=== PATIENT | female | born 1945 | race Two or more races ===

== ENCOUNTER 2019-11-08 13:00 | Outpatient (CLI) | payer OTHER | END 2019-11-08 13:19 | disposition home or self-care (01) | LOC: NUCLEAR 13:00 | PROVIDERS: ATTEND Psychiatry & Neurology Neurology | DX: G30.1 Alzheimer's disease with late onset (principal) | CPT/HCPCS: 78803; A9557 ==

== ENCOUNTER → 2024-07-28 | Day surgery (SDC) | payer OTHER ==
[2024-07-23 11:25] VITALS: BP 150/80
[~2024-07-28] VITALS: Ht 157.5 cm; Wt 83.0 kg
[~2024-07-28] MED LIST: BUPIVACAINE HCL 30 ML VIAL IJ ONE; BUPIVACAINE HCL/MPF 0.5% 30ML VIAL ONE; BYSTOLIC20 MG PO; CALTRATE 600+D1 EAC1 PO; CARDURA XL4 MG PO; CEFTRIAXONE SODIUM 2,000 MG VIAL IV ONE; CEFTRIAXONE SODIUM 2,000 MG VIAL ONE; CELEBREX200MG PO; DIOVAN320 MG PO; ENOXAPARIN SODIUM 40 MG/0.4 ML SYRINGE SUBCUTANEO ONE; HYDRALAZINE HCL25 MG PO; JARDIANCE10 MG PO; LEVOTHYROXINE25 MCG PO; METRONIDAZOLE/SODIUM CHLORIDE 500 MG/100 ML PIGGYBACK IV ONE; MORPHINE SULFATE 4 MG/ML VIAL IV ONE; NEURONTIN300 MG PO; PERCOCET 5-3251 EACH PO; POLY119PG PO; ROSUVASTATIN CA20 MG PO
== END | disposition home or self-care (01) ==
LOC: ADM 07-23 09:30 → CIR.AMB 07:43
PROVIDERS: ATTEND Surgery
DX: K43.6 Other and unspecified ventral hernia with obstruction, without gangrene (principal)

== ENCOUNTER 2024-08-06 09:13 | Emergency (ER) | payer OTHER ==
[~2024-08-06] VITALS: Ht 157.5 cm; Wt 83.0 kg
[~2024-08-06 09:13] MED LIST changes: -BUPIVACAINE HCL 30 ML VIAL IJ ONE; -BUPIVACAINE HCL/MPF 0.5% 30ML VIAL ONE; -CEFTRIAXONE SODIUM 2,000 MG VIAL IV ONE; -CEFTRIAXONE SODIUM 2,000 MG VIAL ONE; -ENOXAPARIN SODIUM 40 MG/0.4 ML SYRINGE SUBCUTANEO ONE; -METRONIDAZOLE/SODIUM CHLORIDE 500 MG/100 ML PIGGYBACK IV ONE; -MORPHINE SULFATE 4 MG/ML VIAL IV ONE
[2024-08-06] MEDS ORDERED: DIATRIZOATE MEGLUMINE, SODIUM 30 ML BOTTLE ONE (10:15)
[2024-08-06] MEDS ORDERED: BARIUM SULFATE 450 ML ORAL.SUSP PO ONE (10:34)
[2024-08-06 10:59] LABS: HEMATOCRIT 38.5 % (36.0-45.00); HEMOGLOBIN 12.3 g/dL (12.0-15.00); MEAN CELL VOLUME 87.5 fL (80.00-100.00); MEAN CORPUSCULAR HEMOGLOBIN 28.1 pg (27.00-32.0); MEAN CORPUSCULAR HGB CONC 32.1 g/dl (32.0-36.0); PLATELET COUNT 266 K/uL (150-450); RED CELL DISTRIBUTION WIDTH 16.3 % (11.5-14.5)
[2024-08-06 11:19] LABS: CALCIUM 10.8 mg/dL (8.5-10.1); CREATININE SERUM 1.16 mg/dL (0.55-1.02); GFR 45.06; POTASSIUM 4.49 mEq/L (3.5-5.1)
[2024-08-06 11:34] LABS: PH,URINE 6.5 (5.0-8.0); URINE APPEARANCE Clear; URINE BILIRRUBIN Negative (NEGATIVE); URINE BLOOD Negative; URINE COLOR Yellow; URINE KETONE Negative (NEGATIVE); URINE LEUKOCYTE Negative; URINE NITRATE Negative; URINE PROTEIN Negative (NEGATIVE); URINE UROBILINOGEN 0.2 E.U./dl
[2024-08-06 11:38] LABS: URINE BACTERIA 41.5 uL (0.0-1933)
[2024-08-06 11:40] LABS: URINE GLUCOSE >=1000 MG/DL (NEGATIVE); URINE WBC 0.3 uL (0.0-23.2)
[2024-08-06] MEDS ORDERED: KETOROLAC TROMETHAMINE 30 MG VIAL ONE (13:08)
[2024-08-06] MEDS ORDERED: ONDANSETRON HCL 2 MG/ML VIAL ONE ×3 (13:15→13:16)
[2024-08-06] MEDS ORDERED: KETOROLAC TROMETHAMINE 30 MG VIAL IV ONE (13:15)
== END 2024-08-06 15:55 | disposition home or self-care (01) ==
LOC: ER 09:14
PROVIDERS: Emergency Medicine
DX: R10.9 Unspecified abdominal pain (principal); I10 Essential (primary) hypertension; E11.9 Type 2 diabetes mellitus without complications; Z87.19 Personal history of other diseases of the digestive system; Z98.890 Other specified postprocedural states; Z88.8 Allergy status to other drugs, medicaments and biological substances; Z91.041 Radiographic dye allergy status
CPT/HCPCS: 36415; 74177; 96365; 99284; J1885; Q9965